=== PATIENT | female | born 1965 | race Caucasian/White ===

== ENCOUNTER 2017-11-11 10:15 | Emergency (ER) | payer BC ==
--- NOTE | 2017-11-11 11:03 | EDM.PDOC ---
ED HPI GENERAL MEDICAL PROBLEM - General Chief Complaint: Respiratory Problem Stated Complaint: CHEST COLD AND IN HEAD Time Seen by Provider: 11/11/17 11:00 Source of Information: Reports: Patient History Limitations: Reports: No Limitations - History of Present Illness INITIAL COMMENTS - FREE TEXT/NARRATIVE: Pt hs felt like her chest has been very tight. She developed wheezing problem after her chemo. . She had tachy last nite up to 140. She wondered about a flutter or fib. She did not have chest pain. Onset: Gradual Duration: Day(s):, Other ( She has been tight for several days. ) Location: Reports: Chest Associated Symptoms: Reports: Cough, Shortness of Breath - Related Data Allergies Allergy/AdvReac Type Severity Reaction Status Date / Time Elsvzip-Bkp-Olo Reductase Allergy Pain Verified 07/28/16 11:31 Inhibitor Home Meds: Home Meds ARIPiprazole [Abilify] 5 mg PO DAILY 07/28/16 [History] Albuterol/Ipratropium [Combivent Respimat] 1 puff PO ASDIRECTED 07/28/16 [ History] Ashwagandha Root Extract [Ashwagandha Extract] 450 mg PO DAILY 07/28/16 [History ] Benzonatate [Benzonatate] 100 mg PO TID PRN 07/28/16 [History] Cyclobenzaprine HCl [Cyclobenzaprine HCl] 10 mg PO TID PRN 07/28/16 [History] Escitalopram [Lexapro] 20 mg PO DAILY 07/28/16 [History] Hydrocodone/Acetaminophen [Hydrocodon-Acetaminophen 5-325] 1 tab PO TID PRN [History] Levothyroxine Sodium [Levothyroxine Sodium] 175 mcg PO DAILY 07/28/16 [History] Liothyronine [Cytomel] 5 mcg PO BID 07/28/16 [History] Modafinil [Provigil] 200 mg PO BID 07/28/16 [History] Naproxen [Naproxen] 500 mg PO BID PRN 07/28/16 [History] [place]-3 Fatty Acids/Fish Oil [Fish Oil 1,200 mg Softgel] 2 cap PO BID 07/28/16 [ History] Prasterone (DHEA) [Dhea 25] 25 mg PO DAILY 07/28/16 [History] Vit D3/Folic Acid/B2/B6/B12 [Folgard Tablet] 1 tab PO DAILY 07/28/16 [History] buPROPion [buPROPion XL] 300 mg PO DAILY 07/28/16 [History] Budesonide/Formoterol Fumarate [Symbicort 160-4.5 Mcg Inhaler] 2 puff INH BID [History] Past Medical History HEENT History: Reports: Impaired Vision Respiratory History: Reports: COPD [employer] History: Reports: Psychiatric History: Reports: Anxiety, Depression Endocrine/Metabolic History: Reports: Hypothyroidism Oncologic (Cancer) History: Reports: Ovarian Dermatologic History: Reports: Other (See Below) Other Dermatologic History: lichen planus - Infectious Disease History Infectious Disease History: Reports: Chicken Pox - Past Surgical History GI Surgical History: Reports: Cholecystectomy Female Surgical History: Reports: Tubal Ligation Other Endocrine Surgeries/Procedures: graves disease Musculoskeletal Surgical History: Reports: Other (See Below) Other Musculoskeletal Surgeries/Procedures:: back surgery x 2 Social & Family History - Tobacco Use Smoking Status *Q: Never Smoker Years of Tobacco use: 35 Packs/Tins Daily: 1 - Caffeine Use Caffeine Use: Reports: Coffee, Soda, Tea - Recreational Drug Use Recreational Drug Use: No ED ROS GENERAL - Review of Systems Review Of Systems: See Below Constitutional: Reports: Fatigue HEENT: Reports: Other (irritated throat) Respiratory: Reports: Shortness of Breath, Wheezing Cardiovascular: Reports: No Symptoms Endocrine: Reports: No Symptoms GI/Abdominal: Reports: No Symptoms : Reports: No Symptoms Musculoskeletal: Reports: No Symptoms Skin: Reports: No Symptoms ED EXAM, GENERAL - Physical Exam Exam: See Below Free Text/Narrative:: pt arrived with tightness with her breathing. She has been dealing with cough and tightness for about 10 dys. Exam Limited By: No Limitations General Appearance: Alert, Anxious, Other (no chest pain just the feeling that she is having problems moving air. ) Ears: Normal TMs Nose: Normal Inspection Throat/Mouth: Normal Inspection Head: Atraumatic Neck: Normal Inspection Respiratory/Chest: No Respiratory Distress Cardiovascular: Regular Rate, Rhythm GI/Abdominal: Soft, Non-Tender (Female) Exam: Deferred Rectal (Female) Exam: Deferred Extremities: Normal Inspection Neurological: Alert, Oriented, Normal Cognition Psychiatric: Normal Affect Course - Vital Signs Last Recorded V/S: Last Vital Signs Temp 35.7 C 11/11/17 10:29 Pulse 100 11/11/17 11:17 Resp 20 11/11/17 10:29 BP 113/75 11/11/17 11:15 Pulse Ox 96 11/11/17 10:29 - Orders/Labs/Meds Orders: Active Orders 24 hr Category Date Time Status Cardiac Monitoring [RC] .As Directed Care 11/11/17 10:59 Active RT Aerosol Therapy [RC] ASDIRECTED Care 11/11/17 11:05 Active Chest 2V [CR] Stat Exams 11/11/17 10:59 Taken TSH ULTRASENSITIVE [CHEM] Stat Lab 11/11/17 11:36 Ordered UA W/MICROSCOPIC [URIN] Urgent Lab 11/11/17 10:51 Uncollected Labs: Laboratory Tests 11/11/17 11/11/17 11/11/17 Range/Units 11:00 11:00 11:00 WBC 10.0 (4.5-11.0) K/uL RBC 4.97 (3.30-5.50) M/uL Hgb 16.3 H (12.0-15.0) g/dL Hct 46.0 (36.0-48.0) % MCV 93 (80-98) fL MCH 33 H (27-31) pg MCHC 35 (32-36) % Plt Count 209 (150-400) K/uL Neut % (Auto) 71 H (36-66) % Lymph % (Auto) 20 L (24-44) % [place] % (Auto) 8 H (2-6) % Eos % (Auto) 1 L (2-4) % Baso % (Auto) 0 (0-1) % Sodium 144 (140-148) mmol/L Potassium 4.1 (3.6-5.2) mmol/L Chloride 108 (100-108) mmol/L Carbon Dioxide 28 (21-32) mmol/L Anion Gap 8.4 (5.0-14.0) mmol/L BUN 9 (7-18) mg/dL Creatinine 0.7 (0.6-1.0) mg/dL Est Cr Clr Drug Dosing 78.65 mL/min Estimated GFR (MDRD) > 60 (>60) Glucose 104 (74-106) mg/dL Lactic Acid (0.4-2.0) mmol/L Calcium 9.0 (8.5-10.1) mg/dL Total Bilirubin 0.4 (0.2-1.0) mg/dL AST 19 (15-37) U/L ALT 46 (12-78) U/L Alkaline Phosphatase 119 H (46-116) U/L C-Reactive Protein 0.67 H (0.0-0.3) mg/dL Total Protein 6.1 L (6.4-8.2) g/dL Albumin 3.4 (3.4-5.0) g/dL Globulin 2.7 (2.3-3.5) g/dL Albumin/Globulin Ratio 1.3 (1.2-2.2) 11/11/17 Range/Units 11:00 WBC (4.5-11.0) K/uL RBC (3.30-5.50) M/uL Hgb (12.0-15.0) g/dL Hct (36.0-48.0) % MCV (80-98) fL MCH (27-31) pg MCHC (32-36) % Plt Count (150-400) K/uL Neut % (Auto) (36-66) % Lymph % (Auto) (24-44) % [place] % (Auto) (2-6) % Eos % (Auto) (2-4) % Baso % (Auto) (0-1) % Sodium (140-148) mmol/L Potassium (3.6-5.2) mmol/L Chloride (100-108) mmol/L Carbon Dioxide (21-32) mmol/L Anion Gap (5.0-14.0) mmol/L BUN (7-18) mg/dL Creatinine (0.6-1.0) mg/dL Est Cr Clr Drug Dosing mL/min Estimated GFR (MDRD) (>60) Glucose (74-106) mg/dL Lactic Acid 1.1 (0.4-2.0) mmol/L Calcium (8.5-10.1) mg/dL Total Bilirubin (0.2-1.0) mg/dL AST (15-37) U/L ALT (12-78) U/L Alkaline Phosphatase (46-116) U/L C-Reactive Protein (0.0-0.3) mg/dL Total Protein (6.4-8.2) g/dL Albumin (3.4-5.0) g/dL Globulin (2.3-3.5) g/dL Albumin/Globulin Ratio (1.2-2.2) Meds: Medications Discontinued Medications Generic Name Dose Route Start Last Admin Trade Name Freq PRN Reason Stop Dose Admin Albuterol 2.5 mg 11/11/17 11:05 11/11/17 11:15 Proventil Neb Soln NEB 11/11/17 11:06 2.5 mg ONETIME ONE Administration Triamcinolone Acetonide 60 mg 11/11/17 11:45 Kenalog-40 INJECT 11/11/17 11:46 ASDIRECTED ONE - Re-Assessments/Exams Free Text/Narrative Re-Assessment/Exam: 11/11/17 11:57 chest xray show increased bronchiol markings but no definite infiltrate. Lab work looks good. Departure - Departure Time of Disposition: 11:46 Disposition: Home, Self-Care 01 Condition: Fair Clinical Impression: Bronchitis, Bronchospasm - Discharge Information Referrals: Curtis Bird MD [Primary Care Provider] - Forms: ED Department Discharge Care Plan Goals: cool mist humidifier, , push fluids, cont other meds, Use the combivent inhaler 2 puffs tid regulrly for the next week, zithromax 500mg no and the 250 daily for 7 days. - My Orders Last 24 Hours: My Active Orders 11/11/17 10:51 UA W/MICROSCOPIC [URIN] Urgent 11/11/17 10:59 Cardiac Monitoring [RC] .As Directed Chest 2V [CR] Stat 11/11/17 11:05 RT Aerosol Therapy [RC] ASDIRECTED 11/11/17 11:36 TSH ULTRASENSITIVE [CHEM] Stat - Assessment/Plan Last 24 Hours: My Active Orders 11/11/17 10:51 UA W/MICROSCOPIC [URIN] Urgent 11/11/17 10:59 Cardiac Monitoring [RC] .As Directed Chest 2V [CR] Stat 11/11/17 11:05 RT Aerosol Therapy [RC] ASDIRECTED 11/11/17 11:36 TSH ULTRASENSITIVE [CHEM] Stat
[2017-11-11] MEDS ORDERED: Albuterol 0.083% 2.5 MG/3 ML Neb Soln NEB ONE (11:05)
[2017-11-11 11:31] VITALS: BP 113/75
[2017-11-11] MEDS ORDERED: Triamcinolone Acetonide 40 MG/ML 1 ML MDV INJECT ONE (11:45)
--- NOTE | 2017-11-12 09:19 | CR ---
Chest 2V HISTORY: sob COMPARISON: 02/11/2012 FINDINGS: Lungs appear clear and normally aerated. Cardiomediastinal silhouette is within normal limits. No vas cular redistribution or pleural fluid can be seen. Bony structures and soft tissues are unremarkable. IMPRESSION: No acute chest abnormality or significant interval change is identified.
== END 2017-11-11 12:06 | disposition home or self-care (01) ==
LOC: JP.ED 10:15
DX: J40 Bronchitis, not specified as acute or chronic (principal); J44.9 Chronic obstructive pulmonary disease, unspecified; E03.9 Hypothyroidism, unspecified; C56.9 Malignant neoplasm of unspecified ovary; Z88.8 Allergy status to other drugs, medicaments and biological substances; Z79.899 Other long term (current) drug therapy; Z79.51 Long term (current) use of inhaled steroids; Z72.0 Tobacco use
CPT/HCPCS: 36415; 71046; 80053; 83605; 84443; 85025; 86140; 94640; 96372; 99284; J3301

== ENCOUNTER 2019-02-05 12:23 | Outpatient (CLI) | payer BC ==
[~2019-02-05 12:23] MED LIST: Bupivacaine 0.25% 10 ML SDV ONE; methylPREDNISolone Acetate 40 MG/ML SDV ONE
[2019-02-05 13:13] VITALS: BP 119/79; PULSE 102
--- NOTE | 2019-02-05 14:12 | ANES ---
DATE OF SERVICE: 02/05/2019 INDICATION: Lucas is a 53-year-old female patient referred to us by Dr. Mock. She had a series of 3 in October through November where she did get pretty good amount of relief, is having some more significant back pain and wanting another epidural steroid injection today. Risks and benefits were again reviewed with the patient, patient verbalized her understanding and wishes to proceed with epidural steroid injection. Please refer to doctor's note for ICD-10 code and diagnosis. Previous epidural done by Dameon Zapata and it was noted that he went a centimeter above the bottom of the scar, so that was where I was looking to place this epidural today. TECHNIQUE: The patient was sat at the edge of the bed. Betadine prep x3 to the lumbar region was done, sterile drape was placed. 1% lidocaine skin wheal and deep was done. A 17- gauge Tuohy needle was inserted at approximately the L5-S1 or approximately 1 cm above the bottom of her scar. As I was inserting the Tuohy needle, the patient was having pressure. When I got good loss of resistance, the patient moved and I got fair amount of bloody-tinged fluid back questioning a dural puncture, so I pulled Tuohy needle slightly back. Fluid had stopped, went back in a little bit where I received loss of resistance again. At that time, I had no CSF, no heme, or no paresthesia. I then proceeded to give the patient 7 mL of sterile normal saline with 1 mL of 40 mg Depo-Medrol. I did not give her any local anesthetic at this time for concern of potential dural puncture. Tuohy needle was then flushed and withdrawn. Sterile drape was taken down. Betadine was cleaned off her back, and a Band-Aid was applied to the puncture site for hemostasis. The patient did feel a little bit of pressure feeling in her head, but after laying her down for several minutes, she did state that it was getting a little better. I encouraged the patient to drink a lot of caffeine and fluids, and if it does not get any better, I encouraged her to call us in a couple of days so we can do an epidural blood patch. The patient understands the potential for dural headache and will call us as needed. Please refer to the nurses notes for vital signs. After the appropriate amount of time, the patient will be discharged per [facility] protocol. Michael Osorio CRNA /[id number]
== END 2019-02-05 13:31 | disposition home or self-care (01) ==
LOC: JP.PAIN 12:23
PROVIDERS: ATTEND Family Medicine
DX: M54.17 Radiculopathy, lumbosacral region (principal); M54.31 Sciatica, right side
CPT/HCPCS: 62322; J1030; J3490

== ENCOUNTER 2021-12-23 04:50 | Emergency (ER) | payer BC, MEDICARE, OTHER ==
[2021-12-23] MEDS ORDERED: Sodium Chloride 0.9% 10 ML Syringe FLUSH PRN (06:11)
[2021-12-23] MEDS ORDERED: Iopamidol 612 MG/ML 100 ML Bottle IV STA (06:26)
[2021-12-23] MEDS ORDERED: Meropenem 1 GM in Sodium Chloride 0.9% 100 ML IV ONE (08:55)
[2021-12-23 10:51] VITALS: BP 124/73; PULSE 97
== END 2021-12-23 11:35 | disposition home or self-care (01) ==
LOC: JP.ED 04:50
DX: T81.32XA Disruption of internal operation (surgical) wound, not elsewhere classified, initial encounter (principal); J44.9 Chronic obstructive pulmonary disease, unspecified; E03.9 Hypothyroidism, unspecified; Z20.822 Contact with and (suspected) exposure to COVID-19; Z88.8 Allergy status to other drugs, medicaments and biological substances; Z79.899 Other long term (current) drug therapy
CPT/HCPCS: 36415; 71260; 74177; 80053; 81001; 85025; 86140; 96365; 99283; 99284-25; J2185; J3490; Q9967; U0002

== ENCOUNTER 2022-02-12 22:20 | Emergency (ER) | payer MEDICARE ==
[2022-02-12] MEDS ORDERED: HYDROmorphone 1 MG/ML Syringe IVPUSH ONE (23:09)
[2022-02-12] MEDS ORDERED: Sodium Chloride 0.9% 10 ML Syringe FLUSH PRN (23:09)
[2022-02-12] MEDS ORDERED: Sodium Chloride 0.9% 10 ML Syringe FLUSH ONE (23:22)
[2022-02-12 23:27] VITALS: BP 125/69; PULSE 101
[2022-02-12] MEDS ORDERED: Sodium Chloride 0.9% 50 ML IV SCH (23:30)
[2022-02-12] MEDS ORDERED: Iopamidol 612 MG/ML 100 ML Bottle IV SCH (23:30)
== END 2022-02-13 01:17 | disposition home or self-care (01) ==
LOC: JP.ED 22:20
DX: R10.32 Left lower quadrant pain (principal); J44.9 Chronic obstructive pulmonary disease, unspecified; K21.9 Gastro-esophageal reflux disease without esophagitis; Z88.8 Allergy status to other drugs, medicaments and biological substances; Z79.84 Long term (current) use of oral hypoglycemic drugs; Z79.899 Other long term (current) drug therapy; Z20.822 Contact with and (suspected) exposure to COVID-19; Z93.3 Colostomy status
CPT/HCPCS: 36415; 74177; 80053; 83605; 85025; 96374; 99283; 99284-25; J1170; J3490; Q9967; U0002

== ENCOUNTER 2022-02-17 05:28 | Emergency (ER) | payer MEDICARE ==
[2022-02-17 06:01] LABS: TROPONIN I HIGH SENSITIVITY 6.1 pg/mL (<=60.3)
[2022-02-17 07:42] VITALS: BP 103/65; PULSE 89
== END 2022-02-17 08:33 | disposition home or self-care (01) ==
LOC: JP.ED 05:28
DX: R07.89 Other chest pain (principal); E11.9 Type 2 diabetes mellitus without complications; J44.9 Chronic obstructive pulmonary disease, unspecified; I10 Essential (primary) hypertension; E11.40 Type 2 diabetes mellitus with diabetic neuropathy, unspecified; E03.9 Hypothyroidism, unspecified; Z90.49 Acquired absence of other specified parts of digestive tract; Z79.899 Other long term (current) drug therapy; Z79.84 Long term (current) use of oral hypoglycemic drugs; Z88.8 Allergy status to other drugs, medicaments and biological substances
CPT/HCPCS: 36415; 71045; 71045-26; 80053; 84484; 85025; 85610; 85730; 93005; 93010; 99283; 99285-25

== ENCOUNTER 2022-03-05 10:27 | Emergency (ER) | payer MEDICARE ==
[2022-03-05 11:01] VITALS: BP 147/73; PULSE 113
== END 2022-03-05 14:28 | disposition home or self-care (01) ==
LOC: JP.ED 10:27
DX: L02.211 Cutaneous abscess of abdominal wall (principal); J44.9 Chronic obstructive pulmonary disease, unspecified; E11.42 Type 2 diabetes mellitus with diabetic polyneuropathy; E03.9 Hypothyroidism, unspecified; K21.9 Gastro-esophageal reflux disease without esophagitis; Z88.8 Allergy status to other drugs, medicaments and biological substances; Z79.84 Long term (current) use of oral hypoglycemic drugs; Z79.899 Other long term (current) drug therapy; Z87.891 Personal history of nicotine dependence
CPT/HCPCS: 74176; 87070; 87077; 87186; 87205; 99282; 99284-25

== ENCOUNTER 2022-03-10 04:58 | Emergency (ER) | payer MEDICARE ==
[2022-03-10] MEDS ORDERED: Ondansetron 4 MG/2 ML SDV IVPUSH ONE (05:02)
[2022-03-10] MEDS ORDERED: Sodium Chloride 0.9% 10 ML Syringe FLUSH PRN (05:02)
[2022-03-10] MEDS ORDERED: HYDROmorphone 1 MG/ML Syringe IVPUSH ONE (05:02)
[2022-03-10] MEDS ORDERED: Sodium Chloride 0.9% 50 ML IV STA (05:22)
[2022-03-10] MEDS ORDERED: Iopamidol 612 MG/ML 100 ML Bottle IV STA (05:22)
[2022-03-10 05:31] LABS: ESTIMATED GFR > 60 (>60)
[2022-03-10 07:16] VITALS: BP 125/80; PULSE 95
== END 2022-03-10 10:05 ==
LOC: JP.ED 04:58
DX: K56.600 Partial intestinal obstruction, unspecified as to cause (principal); K43.6 Other and unspecified ventral hernia with obstruction, without gangrene; K94.09 Other complications of colostomy; E11.9 Type 2 diabetes mellitus without complications; J44.9 Chronic obstructive pulmonary disease, unspecified; K21.9 Gastro-esophageal reflux disease without esophagitis; E03.9 Hypothyroidism, unspecified; Z88.8 Allergy status to other drugs, medicaments and biological substances; Z79.899 Other long term (current) drug therapy; Z20.822 Contact with and (suspected) exposure to COVID-19; Z85.43 Personal history of malignant neoplasm of ovary
CPT/HCPCS: 36415; 74018; 74177; 80053; 83605; 83690; 85025; 86140; 96374; 96375; 99285; J1170; J2405; J3490; Q9967; U0002

== ENCOUNTER 2022-03-22 14:10 | Emergency (ER) | payer MEDICARE ==
[2022-03-22 14:39] VITALS: BP 135/82; PULSE 105
[2022-03-22] MEDS ORDERED: Magnesium Sulfate/Water 2 GM in Premix Bag 1 BAG IV ONE (15:24)
[2022-03-22] MEDS ORDERED: Magnesium Oxide 400 MG Tab PO ONE (15:33)
[2022-03-22] MEDS ORDERED: Ciprofloxacin 500 MG Tab PO ONE (17:34)
[2022-03-22] MEDS ORDERED: Magnesium Sulfate/Water 2 GM in Premix Bag 1 BAG IV SCH (18:00)
[2022-03-22] MEDS ORDERED: Ondansetron 4 MG/2 ML SDV IVPUSH ONE (20:09)
[2022-03-22] MEDS ORDERED: Ondansetron 4 MG/2 ML SDV ONE (20:10)
== END 2022-03-22 20:33 | disposition home or self-care (01) ==
LOC: JP.ED 14:10
DX: D70.1 Agranulocytosis secondary to cancer chemotherapy (principal); T45.1X5A Adverse effect of antineoplastic and immunosuppressive drugs, initial encounter; K94.03 Colostomy malfunction; J44.9 Chronic obstructive pulmonary disease, unspecified; E11.9 Type 2 diabetes mellitus without complications; E83.42 Hypomagnesemia; E03.9 Hypothyroidism, unspecified; Z85.43 Personal history of malignant neoplasm of ovary; Z79.899 Other long term (current) drug therapy
CPT/HCPCS: 36415; 81001; 83735; 96365; 96366; 99283; A9270; J2405; J3475

== ENCOUNTER 2022-04-02 18:01 | Emergency (ER) | payer MEDICARE ==
[2022-04-02 18:45] VITALS: BP 144/70; PULSE 114
[2022-04-02] MEDS ORDERED: Magnesium Sulfate/Water 2 GM in Premix Bag 1 BAG IV ONE (21:58)
[2022-04-02] MEDS ORDERED: Magnesium Oxide 400 MG Tab PO ONE (21:59)
[2022-04-02] MEDS: Magnesium Sulfate/Water 2 GM in Premix Bag 1 BAG IV SCH (22:28)
[2022-04-03] MEDS ORDERED: Acetaminophen/oxyCODONE 325-5 MG Tab PO ONE (02:27)
[2022-04-03] MEDS: Magnesium Sulfate/Water 2 GM in Premix Bag 1 BAG IV SCH (02:59)
== END 2022-04-03 06:01 | disposition home or self-care (01) ==
LOC: JP.ED 18:01
DX: I80.8 Phlebitis and thrombophlebitis of other sites (principal); J44.9 Chronic obstructive pulmonary disease, unspecified; E11.40 Type 2 diabetes mellitus with diabetic neuropathy, unspecified; I10 Essential (primary) hypertension; E83.42 Hypomagnesemia; F17.210 Nicotine dependence, cigarettes, uncomplicated; Z88.6 Allergy status to analgesic agent; Z88.8 Allergy status to other drugs, medicaments and biological substances; Z79.899 Other long term (current) drug therapy; Z79.84 Long term (current) use of oral hypoglycemic drugs; Z90.49 Acquired absence of other specified parts of digestive tract; Z90.710 Acquired absence of both cervix and uterus
CPT/HCPCS: 36415; 83735; 93971; 96365; 96366; 99284; A9270; J3475

== ENCOUNTER 2022-04-21 17:22 | Observation (INO) | payer MEDICARE ==
[2022-04-21] MEDS ORDERED: Magnesium Hydroxide 400 MG/5 ML Susp 30 ML Cup PO PRN (18:25)
[2022-04-21] MEDS ORDERED: Acetaminophen 325 MG Tab PO PRN (18:25)
[2022-04-21] MEDS ORDERED: Ondansetron 4 MG/2 ML SDV IV PRN (18:25)
[2022-04-21] MEDS ORDERED: LORazepam 2 MG/ML SDV IVPUSH PRN (18:25)
[2022-04-21] MEDS ORDERED: Cyclobenzaprine 10 MG Tab PO PRN (18:33)
[2022-04-21] MEDS ORDERED: Cetirizine 10 MG Tab PO PRN (18:33)
[2022-04-21] MEDS ORDERED: Insulin Lispro 100 Unit/ML 3 ML KwikPen SUBCUT SCH (19:00)
[2022-04-21] MEDS: cefTRIAXone 1 GM in Sodium Chloride 0.9% 50 ML IV SCH (19:56)
[2022-04-21] MEDS: Nicotine 14 MG/24 Hr Patch TRDERM SCH (19:57)
[2022-04-21] MEDS ORDERED: Formoterol/Mometasone 200-5 MCG 8.8 GM Inhaler IH SCH (21:00)
[2022-04-21] MEDS: Azithromycin 500 MG in Sodium Chloride 0.9% 250 ML IV SCH (21:06)
[2022-04-21] MEDS: LORazepam 2 MG/ML SDV IVPUSH SCH (22:10)
[2022-04-21] MEDS: Insulin Lispro 100 Unit/ML 3 ML KwikPen SUBCUT SCH (22:11)
[2022-04-21] MEDS: Pantoprazole 40 MG Tab.CR PO SCH (22:11)
[2022-04-21] MEDS: Pregabalin 100 MG Cap PO SCH (22:11)
[2022-04-21] MEDS: Codeine/guaiFENesin 10-100 MG/5 ML Syrup 5 ML Cup PO PRN (22:13)
[2022-04-21] MEDS: Ondansetron 4 MG Tab.DIS PO PRN (22:20)
[2022-04-22] MEDS: oxyCODONE 5 MG Tab PO PRN ×4 (00:51→20:25)
[2022-04-22] MEDS: LORazepam 2 MG/ML SDV IVPUSH SCH (04:58)
[2022-04-22] MEDS: Albuterol/Ipratropium 3.0-0.5 MG/3 ML Neb Soln NEB PRN ×2 (05:07→19:35)
[2022-04-22 05:14] LABS: HEMOGLOBIN A1C 7.6 % (4.5-6.2)
[2022-04-22 05:23] LABS: ESTIMATED GFR 106 mL/min (>60)
[2022-04-22] MEDS: Insulin Lispro 100 Unit/ML 3 ML KwikPen SUBCUT SCH ×4 (07:49→21:35)
[2022-04-22] MEDS: Levothyroxine 25 MCG Tab PO SCH (08:35)
[2022-04-22] MEDS: Levothyroxine 112 MCG Tab PO SCH (08:35)
[2022-04-22] MEDS: Pantoprazole 40 MG Tab.CR PO SCH ×2 (08:35→16:10)
[2022-04-22] MEDS: metFORMIN 500 MG Tab PO SCH ×2 (08:35→16:09)
[2022-04-22] MEDS: ARIPiprazole 10 MG Tab PO SCH (08:36)
[2022-04-22] MEDS: Escitalopram 10 MG Tab PO SCH (08:36)
[2022-04-22] MEDS: Nicotine 14 MG/24 Hr Patch TRDERM SCH (08:36)
[2022-04-22] MEDS: Fluconazole 100 MG Tab PO SCH (08:36)
[2022-04-22] MEDS: predniSONE 5 MG Tab PO SCH (08:37)
[2022-04-22] MEDS: buPROPion 150 MG Tab.ER PO SCH (08:37)
[2022-04-22] MEDS: Magnesium Oxide 400 MG Tab PO SCH (08:37)
[2022-04-22] MEDS: Pregabalin 100 MG Cap PO SCH ×2 (08:43→20:17)
[2022-04-22] MEDS ORDERED: LORazepam 0.5 MG Tab PO SCH (09:00)
[2022-04-22] MEDS ORDERED: Escitalopram 20 MG Tab PO SCH (09:00)
[2022-04-22] MEDS ORDERED: ARMODAFINIL 200 MG PO SCH (09:00)
[2022-04-22] MEDS: Formoterol/Mometasone 200-5 MCG 8.8 GM Inhaler IH SCH ×2 (10:13→20:17)
[2022-04-22] MEDS ORDERED: methylPREDNISolone Sodium Succinate 125 MG/2 ML SDV IVPUSH ONE (11:45)
[2022-04-22] MEDS: LORazepam 0.5 MG Tab PO SCH ×2 (13:16→20:16)
[2022-04-22] MEDS: cefTRIAXone 1 GM in Sodium Chloride 0.9% 50 ML IV SCH (19:22)
[2022-04-22] MEDS: Azithromycin 500 MG in Sodium Chloride 0.9% 250 ML IV SCH (20:17)
[2022-04-22] MEDS: Ondansetron 4 MG Tab.DIS PO PRN (21:36)
[2022-04-22] MEDS ORDERED: LORazepam 2 MG/ML SDV IVPUSH PRN (22:00)
[2022-04-23 05:30] LABS: ESTIMATED GFR 106 mL/min (>60)
[2022-04-23] MEDS: Insulin Lispro 100 Unit/ML 3 ML KwikPen SUBCUT SCH ×2 (07:37→12:08)
[2022-04-23] MEDS: Levothyroxine 112 MCG Tab PO SCH (07:42)
[2022-04-23] MEDS: metFORMIN 500 MG Tab PO SCH (07:42)
[2022-04-23] MEDS: Levothyroxine 25 MCG Tab PO SCH (07:42)
[2022-04-23] MEDS: Pantoprazole 40 MG Tab.CR PO SCH (07:42)
[2022-04-23] MEDS: Formoterol/Mometasone 200-5 MCG 8.8 GM Inhaler IH SCH (07:42)
[2022-04-23] MEDS: oxyCODONE 5 MG Tab PO PRN (07:44)
[2022-04-23] MEDS: ARIPiprazole 10 MG Tab PO SCH (08:17)
[2022-04-23] MEDS: LORazepam 0.5 MG Tab PO SCH (08:17)
[2022-04-23] MEDS: Fluconazole 100 MG Tab PO SCH (08:17)
[2022-04-23] MEDS: Pregabalin 100 MG Cap PO SCH (08:18)
[2022-04-23] MEDS: predniSONE 5 MG Tab PO SCH (08:18)
[2022-04-23] MEDS: Escitalopram 10 MG Tab PO SCH (08:18)
[2022-04-23] MEDS: Nicotine 14 MG/24 Hr Patch TRDERM SCH (08:18)
[2022-04-23] MEDS: buPROPion 150 MG Tab.ER PO SCH (08:18)
[2022-04-23] MEDS: Codeine/guaiFENesin 10-100 MG/5 ML Syrup 5 ML Cup PO PRN (08:18)
[2022-04-23] MEDS: Magnesium Oxide 400 MG Tab PO SCH (08:18)
[2022-04-23] MEDS ORDERED: Magnesium Sulfate/Water 2 GM in Premix Bag 1 BAG IV ONE ×2 (08:30→10:30)
[2022-04-23 11:25] VITALS: BP 129/68; PULSE 93
[2022-04-23] MEDS ORDERED: Cefdinir 300 MG Cap PO ONE (11:35)
[2022-04-23] MEDS ORDERED: Cefdinir 300 MG Cap PO SCH (21:00)
== END 2022-04-23 13:30 | disposition home or self-care (01) ==
LOC: JP.MS 17:22
PROVIDERS: ADMIT Hospitalist; ATTEND Hospitalist
DX: J96.21 Acute and chronic respiratory failure with hypoxia (principal); I10 Essential (primary) hypertension; E11.42 Type 2 diabetes mellitus with diabetic polyneuropathy; E03.9 Hypothyroidism, unspecified; D64.9 Anemia, unspecified; J44.9 Chronic obstructive pulmonary disease, unspecified; F32.A Depression, unspecified; F17.210 Nicotine dependence, cigarettes, uncomplicated; Z79.84 Long term (current) use of oral hypoglycemic drugs; Z79.51 Long term (current) use of inhaled steroids; Z79.899 Other long term (current) drug therapy; Z79.890 Hormone replacement therapy; Z79.52 Long term (current) use of systemic steroids; Z98.890 Other specified postprocedural states; Z88.8 Allergy status to other drugs, medicaments and biological substances
CPT/HCPCS: 36415; 36430; 71046; 80053; 82947; 83036; 83735; 85025; 85027; 86140; 86850; 86900; 86901; 86920; 86922; 87070; 87077; 87205; 94640; 96365; 96366; 96367; 96375; 96376; A9270; G0378; G0379; J0456; J0696; J1642; J1815; J2060; J2930; J3475; J7050; J7512; P9016; Q0162; 99217; 99219; 99225; J7620

== ENCOUNTER 2022-10-17 12:26 | Emergency (ER) | payer BC, MEDICARE ==
[2022-10-17 12:36] VITALS: BP 114/83; PULSE 116
[2022-10-17] MEDS ORDERED: Magnesium Sulfate/Water 2 GM in Premix Bag 1 BAG IV ONE (13:17)
[2022-10-17 13:54] LABS: ESTIMATED GFR 75 mL/min (>60)
[2022-10-17 14:57] LABS: CORONAVIRUS COVID-19 NAA NEGATIVE (NEGATIVE)
== END 2022-10-17 16:19 | disposition home or self-care (01) ==
LOC: JP.ED 12:26
DX: J06.9 Acute upper respiratory infection, unspecified (principal); E83.42 Hypomagnesemia; C56.9 Malignant neoplasm of unspecified ovary; J44.9 Chronic obstructive pulmonary disease, unspecified; I10 Essential (primary) hypertension; E03.9 Hypothyroidism, unspecified; E11.9 Type 2 diabetes mellitus without complications; Z88.6 Allergy status to analgesic agent; Z88.8 Allergy status to other drugs, medicaments and biological substances; Z79.899 Other long term (current) drug therapy; Z90.49 Acquired absence of other specified parts of digestive tract; Z90.710 Acquired absence of both cervix and uterus; Z20.822 Contact with and (suspected) exposure to COVID-19
CPT/HCPCS: 0241U; 36415; 71250; 80053; 83880; 96365; 96366; 99285; J1642; J3475; 99283

== ENCOUNTER 2023-01-14 19:46 | Emergency (ER) | payer MEDICARE, MEDICAID ==
[2023-01-14 20:00] VITALS: PULSE 119
[2023-01-14 20:36] VITALS: BP 136/73
[2023-01-14 21:02] LABS: ESTIMATED GFR 53 mL/min (>60)
[2023-01-14 21:16] LABS: CORONAVIRUS COVID-19 NAA NEGATIVE (NEGATIVE)
[2023-01-14] MEDS ORDERED: methylPREDNISolone Sodium Succinate 125 MG/2 ML SDV IVPUSH ONE (21:37)
[2023-01-14] MEDS ORDERED: LORazepam 1 MG Tab PO ONE (21:39)
== END 2023-01-14 22:25 | disposition home or self-care (01) ==
LOC: JP.ED 19:46
DX: J44.1 Chronic obstructive pulmonary disease with (acute) exacerbation (principal); I10 Essential (primary) hypertension; E11.42 Type 2 diabetes mellitus with diabetic polyneuropathy; E03.9 Hypothyroidism, unspecified; Z88.8 Allergy status to other drugs, medicaments and biological substances; Z79.84 Long term (current) use of oral hypoglycemic drugs; Z72.0 Tobacco use; Z20.822 Contact with and (suspected) exposure to COVID-19
CPT/HCPCS: 0241U; 36415; 71046; 80053; 85025; 85379; 86140; 96374; 99283; 99285; A9270; J1642; J2930

== ENCOUNTER 2023-06-28 14:59 | Emergency (ER) | payer MEDICARE, MEDICAID ==
[2023-06-28 16:11] LABS: BASOPHILS PERCENT AUTO 0.3 % (0.1-1.3); EOSINOPHILS PERCENT AUTO 0.1 % (0.0-5.4); HEMATOCRIT 37.8 % (34.3-46.0); IMMATURE GRAN ABSOLUTE AUTO 0.03 K/uL (0.00-0.23); IMMATURE GRAN PERCENT AUTO 0.4 % (0.0-0.7); LYMPHOCYTES ABSOLUTE AUTO 0.81 K/uL (0.8-3.3); LYMPHOCYTES PERCENT AUTO 10.8 % (11.4-47.7); MEAN CORPUSCULAR HEMOGLOBIN 36.5 pg (31.6-35.5); MEAN CORPUSCULAR HGB CONC 34.4 g/dL (31.6-35.5); MEAN CORPUSCULAR VOLUME 106.2 fL (81.4-99.0); MONOCYTES ABSOLUTE AUTO 0.47 K/uL (0.20-0.90); MONOCYTES PERCENT AUTO 6.3 % (3.3-12.6); NEUTROPHILS ABSOLUTE AUTO 6.13 K/uL (1.0-7.6); NEUTROPHILS PERCENT AUTO 82.1 % (40.0-78.1); PLATELET COUNT,PLT 145 K/uL (130-375); RED BLOOD CELL COUNT 3.56 M/uL (3.77-5.24); WHITE BLOOD CELL COUNT,WBC 7.5 K/uL (3.2-11.0)
[2023-06-28 16:12] LABS: BASOPHILS ABSOLUTE AUTO 0.02 K/uL (0.00-0.10); EOSINOPHILS ABSOLUTE AUTO 0.01 K/uL (0.00-0.40)
[2023-06-28 16:13] LABS: CARBOXYHEMOGLOBIN 9.9 % (0.0-1.6); METHEMOGLOBIN 0.8 %; O2 SATURATION VENOUS 81.8; PCO2 VENOUS 43.1 mm/Hg; PO2 VENOUS 46.4 mm/Hg; TOTAL HEMOGLOBIN 13.3 g/dL (12.0-16.0)
[2023-06-28 16:14] LABS: BASE EXCESS VENOUS 1.9 mm/L; BICARBONATE,VENOUS 26.4 mmol/L; PH,VENOUS 7.404 (7.350-7.450)
[2023-06-28 16:26] LABS: APPEARANCE,URINE CLEAR (CLEAR); BILIRUBIN,URINE NEGATIVE (NEGATIVE); COLOR,URINE YELLOW (YELLOW); GLUCOSE,URINE 100 mg/dL (NEGATIVE); KETONES,URINE NEGATIVE (NEGATIVE); LEUKOCYTE ESTERASE,URINE TRACE (NEGATIVE); NITRITE,URINE NEGATIVE (NEGATIVE); OCCULT BLOOD,URINE NEGATIVE (NEGATIVE); PROTEIN,URINE NEGATIVE (NEGATIVE); UROBILINOGEN,URINE 0.2 EU/dL (0.2-1.0)
[2023-06-28 16:34] VITALS: BP 122/87; PULSE 114
[2023-06-28 16:34] LABS: INR 0.9; PROTHROMBIN TIME 9.6 sec (9.2-10.6)
[2023-06-28 16:46] LABS: AMORPHOUS SEDIMENT,URINE NOT SEEN; BACTERIA,URINE FEW; EPITHELIAL CELLS,URINE RARE; MUCUS,URINE NOT SEEN; RBC,URINE 0-5 (0-5); WBC,URINE 0-5 (0-5)
[2023-06-28 16:47] LABS: A/G RATIO 0.9 (1.2-2.2); ALANINE AMINOTRANSFERASE,ALT 30 U/L (12-78); ALBUMIN 3.2 g/dL (3.4-5.0); ALKALINE PHOSPHATASE 115 U/L (46-116); ASPARTATE AMNIOTRANSFERASE,AST 14 U/L (15-37); BILIRUBIN TOTAL 0.2 mg/dL (0.2-1.0); BLOOD UREA NITROGEN,BUN 16 mg/dL (7-18); CALCIUM 9.5 mg/dL (8.5-10.1); CARBON DIOXIDE,CO2 27 mmol/L (21-32); CHLORIDE,CL 99 mmol/L (100-108); CREATININE 0.8 mg/dL (0.6-1.0); EST CRCL DRUG DOSING (CG) 64.95 mL/min; ESTIMATED GFR 86 mL/min (>60); GLUCOSE RANDOM 245 mg/dL (74-106); POTASSIUM,K 4.2 mmol/L (3.6-5.2); PRO B-TYPE NATRIUR PEPT,BNPPRO 93 pg/mL (5-125); PROTEIN TOTAL,TP 6.6 g/dL (6.4-8.2); SODIUM,NA 135 mmol/L (140-148)
[2023-06-28 16:52] LABS: ANION GAP 13.2 mmol/L (5.0-14.0)
[2023-06-28] MEDS ORDERED: Iopamidol 755 Mg/ML 100 ML Bottle IV SCH (17:30)
[2023-06-28] MEDS ORDERED: Sodium Chloride 0.9% 100 ML IV SCH (17:30)
== END 2023-06-28 19:34 | disposition home or self-care (01) ==
LOC: JP.ED 14:59
DX: M54.50 Low back pain, unspecified (principal); J47.1 Bronchiectasis with (acute) exacerbation; E11.65 Type 2 diabetes mellitus with hyperglycemia; K59.03 Drug induced constipation; T40.2X5A Adverse effect of other opioids, initial encounter; Z85.43 Personal history of malignant neoplasm of ovary; Z93.3 Colostomy status; E03.9 Hypothyroidism, unspecified; E11.40 Type 2 diabetes mellitus with diabetic neuropathy, unspecified; I10 Essential (primary) hypertension; Z79.84 Long term (current) use of oral hypoglycemic drugs; Z79.899 Other long term (current) drug therapy; Z88.8 Allergy status to other drugs, medicaments and biological substances
CPT/HCPCS: 36415; 71275; 72131; 74160; 76377; 80053; 81001; 82803; 83605; 83880; 84145; 84484; 85025; 85379; 85610; 99284

== ENCOUNTER 2023-12-24 12:54 | Emergency (ER) | payer MEDICARE, MEDICAID ==
[2023-12-24 14:24] LABS: BASOPHILS ABSOLUTE AUTO 0.04 K/uL (0.00-0.10); BASOPHILS PERCENT AUTO 0.7 % (0.1-1.3); EOSINOPHILS ABSOLUTE AUTO 0.11 K/uL (0.00-0.40); EOSINOPHILS PERCENT AUTO 1.9 % (0.0-5.4); HEMATOCRIT 41.5 % (34.3-46.0); HEMOGLOBIN 14.1 g/dL (11.2-15.5); IMMATURE GRAN ABSOLUTE AUTO 0.02 K/uL (0.00-0.23); IMMATURE GRAN PERCENT AUTO 0.4 % (0.0-0.7); LYMPHOCYTES ABSOLUTE AUTO 1.43 K/uL (0.8-3.3); LYMPHOCYTES PERCENT AUTO 25.3 % (11.4-47.7); MEAN CORPUSCULAR HEMOGLOBIN 31.9 pg (31.6-35.5); MEAN CORPUSCULAR VOLUME 93.9 fL (81.4-99.0); MONOCYTES ABSOLUTE AUTO 0.61 K/uL (0.20-0.90); MONOCYTES PERCENT AUTO 10.8 % (3.3-12.6); NEUTROPHILS ABSOLUTE AUTO 3.45 K/uL (1.0-7.6); NEUTROPHILS PERCENT AUTO 60.9 % (40.0-78.1); PLATELET COUNT,PLT 141 K/uL (130-375); RED BLOOD CELL COUNT 4.42 M/uL (3.77-5.24); WHITE BLOOD CELL COUNT,WBC 5.7 K/uL (3.2-11.0)
[2023-12-24] MEDS: Albuterol 0.083% 2.5 MG/3 ML Neb Soln NEB ONE ×2 (14:34→16:01)
[2023-12-24 14:51] LABS: A/G RATIO 0.9 (1.2-2.2); ALANINE AMINOTRANSFERASE,ALT 23 U/L (12-78); ALBUMIN 3.2 g/dL (3.4-5.0); ALKALINE PHOSPHATASE 123 U/L (46-116); ASPARTATE AMNIOTRANSFERASE,AST 17 U/L (15-37); BILIRUBIN TOTAL 0.2 mg/dL (0.2-1.0); BLOOD UREA NITROGEN,BUN 9 mg/dL (7-18); C-REACTIVE PROTEIN 2.34 mg/dL (<0.50); CALCIUM 9.5 mg/dL (8.5-10.1); CARBON DIOXIDE,CO2 29 mmol/L (21-32); CHLORIDE,CL 102 mmol/L (100-108); CREATININE 0.8 mg/dL (0.6-1.0); EST CRCL DRUG DOSING (CG) 64.18 mL/min; ESTIMATED GFR 86 mL/min (>60); GLUCOSE RANDOM 125 mg/dL (74-106); POTASSIUM,K 4.1 mmol/L (3.6-5.2); PROTEIN TOTAL,TP 6.9 g/dL (6.4-8.2); SODIUM,NA 139 mmol/L (140-148)
[2023-12-24 14:53] LABS: ANION GAP 12.1 mmol/L (5.0-14.0)
[2023-12-24 15:36] VITALS: BP 122/79; PULSE 110
== END 2023-12-24 16:25 | disposition home or self-care (01) ==
LOC: JP.ED 12:54
DX: J44.1 Chronic obstructive pulmonary disease with (acute) exacerbation (principal); J18.9 Pneumonia, unspecified organism; I10 Essential (primary) hypertension; K21.9 Gastro-esophageal reflux disease without esophagitis; E11.42 Type 2 diabetes mellitus with diabetic polyneuropathy; E03.9 Hypothyroidism, unspecified; F17.210 Nicotine dependence, cigarettes, uncomplicated; Z88.8 Allergy status to other drugs, medicaments and biological substances; Z79.899 Other long term (current) drug therapy; Z79.51 Long term (current) use of inhaled steroids; Z86.19 Personal history of other infectious and parasitic diseases; Z90.49 Acquired absence of other specified parts of digestive tract; Z90.710 Acquired absence of both cervix and uterus
CPT/HCPCS: 36415; 80053; 85025; 86140; 94640; 99285

== ENCOUNTER 2023-12-28 20:36 | Inpatient (IN) | payer MEDICARE, MEDICAID ==
[2023-12-28 21:43] LABS: BASOPHILS PERCENT AUTO 0.4 % (0.1-1.3); EOSINOPHILS ABSOLUTE AUTO 0.03 K/uL (0.00-0.40); EOSINOPHILS PERCENT AUTO 0.5 % (0.0-5.4); HEMATOCRIT 39.6 % (34.3-46.0); HEMOGLOBIN 13.5 g/dL (11.2-15.5); IMMATURE GRAN PERCENT AUTO 0.4 % (0.0-0.7); LYMPHOCYTES ABSOLUTE AUTO 1.57 K/uL (0.8-3.3); LYMPHOCYTES PERCENT AUTO 27.8 % (11.4-47.7); MEAN CORPUSCULAR HEMOGLOBIN 31.5 pg (31.6-35.5); MEAN CORPUSCULAR HGB CONC 34.1 g/dL (31.6-35.5); MEAN CORPUSCULAR VOLUME 92.3 fL (81.4-99.0); MONOCYTES ABSOLUTE AUTO 0.67 K/uL (0.20-0.90); MONOCYTES PERCENT AUTO 11.9 % (3.3-12.6); NEUTROPHILS ABSOLUTE AUTO 3.33 K/uL (1.0-7.6); PLATELET COUNT,PLT 156 K/uL (130-375); RED BLOOD CELL COUNT 4.29 M/uL (3.77-5.24); WHITE BLOOD CELL COUNT,WBC 5.6 K/uL (3.2-11.0)
[2023-12-28 21:44] LABS: BASOPHILS ABSOLUTE AUTO 0.02 K/uL (0.00-0.10); IMMATURE GRAN ABSOLUTE AUTO 0.02 K/uL (0.00-0.23)
[2023-12-28 22:02] LABS: ALANINE AMINOTRANSFERASE,ALT 24 U/L (12-78); ALBUMIN 3.5 g/dL (3.4-5.0); ALKALINE PHOSPHATASE 110 U/L (46-116); ASPARTATE AMNIOTRANSFERASE,AST 13 U/L (15-37); BILIRUBIN TOTAL 0.2 mg/dL (0.2-1.0); BLOOD UREA NITROGEN,BUN 21 mg/dL (7-18); CALCIUM 9.7 mg/dL (8.5-10.1); CARBON DIOXIDE,CO2 26 mmol/L (21-32); CHLORIDE,CL 98 mmol/L (100-108); CREATININE 0.9 mg/dL (0.6-1.0); EST CRCL DRUG DOSING (CG) 57.05 mL/min; ESTIMATED GFR 75 mL/min (>60); GLUCOSE RANDOM 190 mg/dL (74-106); POTASSIUM,K 3.5 mmol/L (3.6-5.2); PROTEIN TOTAL,TP 7.1 g/dL (6.4-8.2); SODIUM,NA 137 mmol/L (140-148)
[2023-12-28 22:04] LABS: ANION GAP 16.5 mmol/L (5.0-14.0)
[2023-12-28] MEDS: Albuterol/Ipratropium 3.0-0.5 MG/3 ML Neb Soln NEB ONE (22:11)
[2023-12-28] MEDS: Sodium Chloride 0.9% 1,000 ML IV ONE (22:20)
[2023-12-29] MEDS ORDERED: methylPREDNISolone Sod Succ 250 MG in Dextrose 5% in Water 100 ML IV ONE (00:05)
[2023-12-29 00:19] LABS: CORONAVIRUS COVID-19 NAA NEGATIVE (NEGATIVE); INFLUENZA A NAA NEGATIVE (NEGATIVE); INFLUENZA B NAA NEGATIVE (NEGATIVE); RESPIRATORY SYNCYTIAL VIR NAA NEGATIVE (NEGATIVE)
[2023-12-29] MEDS: methylPREDNISolone Sodium Succinate 125 MG/2 ML SDV IVPUSH ONE (00:36)
[2023-12-29 01:53] LABS: BASE EXCESS ARTERIAL 0.5 mm/L; BICARBONATE,ARTERIAL 24.1 mmol/L (22.0-26.0); CARBOXYHEMOGLOBIN 4.3 % (0.0-1.6); METHEMOGLOBIN 1.2 %; O2 SATURATION ARTERIAL 74.1 % (95.0-98.0); TOTAL HEMOGLOBIN 13.4 g/dL (12.0-16.0)
[2023-12-29 01:56] LABS: PO2 ARTERIAL 41.3 mmHg (75.0-100.0)
[2023-12-29] MEDS ORDERED: Nicotine Polacrilex 2 MG Gum CHEW PRN (03:29)
[2023-12-29] MEDS ORDERED: Nicotine 21 MG/24 Hr Patch TRDERM PRN (03:29)
[2023-12-29] MEDS ORDERED: Benzonatate 100 MG Cap PO PRN (03:29)
[2023-12-29] MEDS ORDERED: Cyclobenzaprine 10 MG Tab PO PRN (03:29)
[2023-12-29] MEDS ORDERED: Albuterol 0.083% 2.5 MG/3 ML Neb Soln NEB PRN (03:29)
[2023-12-29] MEDS ORDERED: Sennosides 8.6 MG Tab PO PRN (03:29)
[2023-12-29] MEDS ORDERED: Prochlorperazine 10 MG Tab PO PRN (03:29)
[2023-12-29] MEDS: Sodium Chloride 0.9% 1,000 ML IV SCH (04:03)
[2023-12-29] MEDS: Potassium Chloride 20 MEQ in Premix Bag 1 BAG IV ONE (04:03)
[2023-12-29] MEDS: cefTRIAXone 1 GM in Sodium Chloride 0.9% 50 ML IV SCH (04:13)
[2023-12-29] MEDS: Levofloxacin/Dextrose 5%-Water 500 MG in Premix Bag 1 BAG IV SCH (04:43)
[2023-12-29] MEDS: methylPREDNISolone Sodium Succinate 40 MG/1 ML SDV IV SCH (05:42)
[2023-12-29] MEDS: Albuterol/Ipratropium 3.0-0.5 MG/3 ML Neb Soln NEB SCH (07:49)
[2023-12-29] MEDS: Acetaminophen/HYDROcodone 325-10 MG Tab PO PRN (08:55)
[2023-12-29] MEDS: Cholecalciferol (Vitamin D3) 25 MCG Tab PO SCH (08:56)
[2023-12-29] MEDS: Vitamin B Complex Tab PO SCH (08:56)
[2023-12-29] MEDS: Furosemide 40 MG Tab PO SCH (08:56)
[2023-12-29] MEDS: Enoxaparin 40 MG/0.4 ML Syringe SUBCUT SCH (08:56)
[2023-12-29] MEDS: Levothyroxine 50 MCG Tab PO SCH (08:57)
[2023-12-29] MEDS: Escitalopram 10 MG Tab PO SCH (08:58)
[2023-12-29] MEDS: buPROPion 150 MG Tab.ER PO SCH (08:59)
[2023-12-29] MEDS: Magnesium Oxide 400 MG Tab PO SCH (08:59)
[2023-12-29] MEDS: ARIPiprazole 10 MG Tab PO SCH (08:59)
[2023-12-29] MEDS ORDERED: Non-Formulary Medication 1 Each (Magnesium Chloride [Mag-64] 64 MG Tab.Er) PO SCH (09:00)
[2023-12-29] MEDS: Pantoprazole 40 MG Vial IV SCH (09:00)
[2023-12-29] MEDS: LORazepam 0.5 MG Tab PO SCH (09:06)
[2023-12-29] MEDS: Pregabalin 100 MG Cap PO SCH (09:06)
[2023-12-29] MEDS: Insulin Lispro 100 Unit/ML 3 ML KwikPen SUBCUT SCH (09:09)
[2023-12-29] MEDS: AMILORIDE 5 MG PO SCH ×2 (10:30→21:19)
[2023-12-29] MEDS: ARMODAFINIL 200 MG PO SCH (10:31)
[2023-12-29] MEDS: METFORMIN 500 MG PO SCH (12:16)
[2023-12-29] MEDS: Sodium Chloride 0.9% 10 ML Syringe FLUSH ONE (14:18)
[2023-12-29] MEDS: Sodium Chloride 0.9% 100 ML IV SCH (14:18)
[2023-12-29] MEDS: Iopamidol 755 Mg/ML 100 ML Bottle IV SCH (14:18)
[2023-12-29] MEDS: Amoxicillin/Clavulanate K 875-125 MG Tab PO SCH (14:53)
[2023-12-29] MEDS ORDERED: Nicotine 14 MG/24 Hr Patch TRDERM SCH (15:45)
[2023-12-29] MEDS: Nicotine 21 MG/24 Hr Patch TRDERM SCH (16:10)
[2023-12-29] MEDS: CYCLOPHOSPHAMIDE 50 MG PO SCH (21:18)
[2023-12-29] MEDS: Acetylcysteine 20% 200 MG/ML 4 ML Nebulizer Soln SDV NEB SCH (21:20)
[2023-12-30 05:09] LABS: HEMOGLOBIN 13.3 g/dL (11.2-15.5); MEAN CORPUSCULAR HEMOGLOBIN 31.1 pg (31.6-35.5); MEAN CORPUSCULAR HGB CONC 33.3 g/dL (31.6-35.5); MEAN CORPUSCULAR VOLUME 93.7 fL (81.4-99.0); RED BLOOD CELL COUNT 4.27 M/uL (3.77-5.24); WHITE BLOOD CELL COUNT,WBC 6.3 K/uL (3.2-11.0)
[2023-12-30 05:28] LABS: ANION GAP 8.9 mmol/L (5.0-14.0); CREATININE 0.7 mg/dL (0.6-1.0); EST CRCL DRUG DOSING (CG) 73.35 mL/min; MAGNESIUM 1.3 mg/dL (1.8-2.4); POTASSIUM,K 3.6 mmol/L (3.6-5.2)
[2023-12-30] MEDS: predniSONE 5 MG Tab PO SCH (08:06)
[2023-12-30] MEDS: Pantoprazole 40 MG Tab.CR PO SCH (08:08)
[2023-12-30] MEDS: Magnesium Sulfate/Water 2 GM in Premix Bag 1 BAG IV SCH (10:05)
[2023-12-31 11:08] VITALS: BP 123/70; PULSE 113
[2023-12-31] MEDS ORDERED: Acetylcysteine 20% 200 MG/ML 4 ML Nebulizer Soln SDV NEB SCH (15:00)
== END 2023-12-31 13:00 | disposition home or self-care (01) | DRG 189 ==
LOC: JP.ED 20:36 → JP.MS 12-29 02:15
PROVIDERS: ADMIT Hospitalist; ATTEND Internal Medicine
DX: J96.21 Acute and chronic respiratory failure with hypoxia (principal); R09.02 Hypoxemia; J44.1 Chronic obstructive pulmonary disease with (acute) exacerbation; C56.9 Malignant neoplasm of unspecified ovary; E11.9 Type 2 diabetes mellitus without complications; J44.0 Chronic obstructive pulmonary disease with (acute) lower respiratory infection; Z66 Do not resuscitate; J20.9 Acute bronchitis, unspecified; J43.9 Emphysema, unspecified; K21.9 Gastro-esophageal reflux disease without esophagitis; E03.9 Hypothyroidism, unspecified; D64.9 Anemia, unspecified; E11.42 Type 2 diabetes mellitus with diabetic polyneuropathy; E87.6 Hypokalemia; M19.90 Unspecified osteoarthritis, unspecified site; I10 Essential (primary) hypertension; F17.210 Nicotine dependence, cigarettes, uncomplicated; Z93.3 Colostomy status; Z88.8 Allergy status to other drugs, medicaments and biological substances; Z79.84 Long term (current) use of oral hypoglycemic drugs; Z99.81 Dependence on supplemental oxygen; Z90.49 Acquired absence of other specified parts of digestive tract; Z90.710 Acquired absence of both cervix and uterus; Z90.721 Acquired absence of ovaries, unilateral; Z98.890 Other specified postprocedural states; Z79.899 Other long term (current) drug therapy; Z79.890 Hormone replacement therapy; Z86.010 Personal history of colon polyps
CPT/HCPCS: 0241U; 36415; 36600; 71046; 71275; 80048; 80053; 82803; 82947; 83735; 85025; 85027; 94640; 94667; 94668; 99232; 99238; 99285; 96361; 96374; 99222; A9270-GY; C9113; J0696; J1650; J1815; J1956; J2920; J2930; J3475; J3480; J3490; J7030; J7512; J7620; Q9967

== ENCOUNTER 2024-02-06 16:39 | Emergency (ER) | payer MEDICARE, MEDICAID ==
[2024-02-06 17:41] LABS: BASOPHILS ABSOLUTE AUTO 0.04 K/uL (0.00-0.10); BASOPHILS PERCENT AUTO 0.6 % (0.1-1.3); EOSINOPHILS ABSOLUTE AUTO 0.11 K/uL (0.00-0.40); EOSINOPHILS PERCENT AUTO 1.7 % (0.0-5.4); HEMOGLOBIN 14.1 g/dL (11.2-15.5); IMMATURE GRAN ABSOLUTE AUTO 0.01 K/uL (0.00-0.23); IMMATURE GRAN PERCENT AUTO 0.2 % (0.0-0.7); LYMPHOCYTES ABSOLUTE AUTO 1.18 K/uL (0.8-3.3); LYMPHOCYTES PERCENT AUTO 18.1 % (11.4-47.7); MEAN CORPUSCULAR HEMOGLOBIN 31.9 pg (31.6-35.5); MEAN CORPUSCULAR HGB CONC 34.4 g/dL (31.6-35.5); MEAN CORPUSCULAR VOLUME 92.8 fL (81.4-99.0); MONOCYTES ABSOLUTE AUTO 0.55 K/uL (0.20-0.90); MONOCYTES PERCENT AUTO 8.4 % (3.3-12.6); NEUTROPHILS ABSOLUTE AUTO 4.63 K/uL (1.0-7.6); PLATELET COUNT,PLT 149 K/uL (130-375); RED BLOOD CELL COUNT 4.42 M/uL (3.77-5.24); WHITE BLOOD CELL COUNT,WBC 6.5 K/uL (3.2-11.0)
[2024-02-06 17:44] LABS: CARBOXYHEMOGLOBIN 9.2 % (0.0-1.6); METHEMOGLOBIN 0.8 %; O2 SATURATION VENOUS 76.9; OXYHEMOGLOBIN 69.2 %; PCO2 VENOUS 37.5 mm/Hg; PH,VENOUS 7.434 (7.350-7.450); TOTAL HEMOGLOBIN 14.4 g/dL (12.0-16.0)
[2024-02-06 17:45] LABS: BASE EXCESS VENOUS 1.1 mm/L; BICARBONATE,VENOUS 24.6 mmol/L; PO2 VENOUS 39.9 mm/Hg
[2024-02-06] MEDS: Albuterol/Ipratropium 3.0-0.5 MG/3 ML Neb Soln NEB ONE (17:47)
[2024-02-06 18:06] LABS: A/G RATIO 0.9 (1.2-2.2); ALANINE AMINOTRANSFERASE,ALT 24 U/L (12-78); ALBUMIN 3.2 g/dL (3.4-5.0); ALKALINE PHOSPHATASE 121 U/L (46-116); ASPARTATE AMNIOTRANSFERASE,AST 17 U/L (15-37); BILIRUBIN TOTAL 0.2 mg/dL (0.2-1.0); BLOOD UREA NITROGEN,BUN 13 mg/dL (7-18); CALCIUM 8.9 mg/dL (8.5-10.1); CARBON DIOXIDE,CO2 26 mmol/L (21-32); CHLORIDE,CL 99 mmol/L (100-108); CREATININE 0.7 mg/dL (0.6-1.0); EST CRCL DRUG DOSING (CG) 70.13 mL/min; ESTIMATED GFR 101 mL/min (>60); GLUCOSE RANDOM 135 mg/dL (74-106); PRO B-TYPE NATRIUR PEPT,BNPPRO 45 pg/mL (5-125); PROTEIN TOTAL,TP 6.9 g/dL (6.4-8.2); SODIUM,NA 134 mmol/L (140-148)
[2024-02-06 18:17] LABS: CORONAVIRUS COVID-19 NAA NEGATIVE (NEGATIVE); INFLUENZA A NAA NEGATIVE (NEGATIVE); INFLUENZA B NAA NEGATIVE (NEGATIVE); RESPIRATORY SYNCYTIAL VIR NAA NEGATIVE (NEGATIVE)
[2024-02-06] MEDS: Iopamidol 755 Mg/ML 100 ML Bottle IV SCH (18:58)
[2024-02-06] MEDS: Sodium Chloride 0.9% 100 ML IV SCH (18:58)
[2024-02-06 19:08] LABS: APPEARANCE,URINE CLEAR (CLEAR); BILIRUBIN,URINE NEGATIVE (NEGATIVE); COLOR,URINE YELLOW (YELLOW); GLUCOSE,URINE NEGATIVE (NEGATIVE); KETONES,URINE NEGATIVE (NEGATIVE); LEUKOCYTE ESTERASE,URINE NEGATIVE (NEGATIVE); NITRITE,URINE NEGATIVE (NEGATIVE); OCCULT BLOOD,URINE NEGATIVE (NEGATIVE); PH,URINE 5.5 (5.0-8.0); PROTEIN,URINE NEGATIVE (NEGATIVE); UROBILINOGEN,URINE 0.2 EU/dL (0.2-1.0)
[2024-02-06 19:13] LABS: AMORPHOUS SEDIMENT,URINE NOT SEEN; BACTERIA,URINE FEW; EPITHELIAL CELLS,URINE RARE; MUCUS,URINE NOT SEEN; RBC,URINE 0-5 (0-5); WBC,URINE 0-5 (0-5)
[2024-02-06] MEDS: predniSONE 20 MG Tab PO ONE (19:49)
[2024-02-06 19:51] VITALS: BP 124/78; PULSE 101
== END 2024-02-06 19:55 | disposition home or self-care (01) ==
LOC: JP.ED 16:39
DX: J44.1 Chronic obstructive pulmonary disease with (acute) exacerbation (principal); I10 Essential (primary) hypertension; K21.9 Gastro-esophageal reflux disease without esophagitis; E11.9 Type 2 diabetes mellitus without complications; E03.9 Hypothyroidism, unspecified; Z88.8 Allergy status to other drugs, medicaments and biological substances; Z79.899 Other long term (current) drug therapy; Z79.84 Long term (current) use of oral hypoglycemic drugs
CPT/HCPCS: 0241U; 36415; 71275; 80053; 81001; 82803; 83605; 83880; 84145; 84484; 85025; 85379; 93005; 94640; 99285; J3490; J7512; Q9967; 93010; J7620

== ENCOUNTER 2024-03-10 22:15 | Emergency (ER) | payer MEDICARE, MEDICAID ==
[2024-03-11] MEDS: Magnesium Sulfate/Water 2 GM in Premix Bag 1 BAG IV ONE ×2 (00:45→02:24)
[2024-03-11] MEDS: Benzonatate 100 MG Cap PO ONE (02:44)
[2024-03-11 03:52] VITALS: BP 100/62; PULSE 103
== END 2024-03-11 05:48 | disposition home or self-care (01) ==
LOC: JP.ED 22:15
DX: J44.1 Chronic obstructive pulmonary disease with (acute) exacerbation (principal); E83.42 Hypomagnesemia; I10 Essential (primary) hypertension; J44.9 Chronic obstructive pulmonary disease, unspecified; K21.9 Gastro-esophageal reflux disease without esophagitis; E11.9 Type 2 diabetes mellitus without complications; E03.9 Hypothyroidism, unspecified; F17.210 Nicotine dependence, cigarettes, uncomplicated; Z88.6 Allergy status to analgesic agent; Z88.8 Allergy status to other drugs, medicaments and biological substances; Z79.899 Other long term (current) drug therapy; Z79.84 Long term (current) use of oral hypoglycemic drugs; Z90.49 Acquired absence of other specified parts of digestive tract; Z90.710 Acquired absence of both cervix and uterus
CPT/HCPCS: 36415; 83735; 96365; 96366; 99283; A9270; J3475

== ENCOUNTER 2024-04-12 06:46 | Emergency (ER) | payer MEDICARE, MEDICAID ==
[2024-04-12 07:28] LABS: BASOPHILS ABSOLUTE AUTO 0.03 K/uL (0.00-0.10); BASOPHILS PERCENT AUTO 0.6 % (0.1-1.3); HEMATOCRIT 39.9 % (34.3-46.0); HEMOGLOBIN 13.5 g/dL (11.2-15.5); IMMATURE GRAN PERCENT AUTO 0.4 % (0.0-0.7); LYMPHOCYTES ABSOLUTE AUTO 1.21 K/uL (0.8-3.3); LYMPHOCYTES PERCENT AUTO 23.9 % (11.4-47.7); MEAN CORPUSCULAR HEMOGLOBIN 30.5 pg (31.6-35.5); MEAN CORPUSCULAR HGB CONC 33.8 g/dL (31.6-35.5); MEAN CORPUSCULAR VOLUME 90.3 fL (81.4-99.0); MONOCYTES PERCENT AUTO 11.8 % (3.3-12.6); NEUTROPHILS ABSOLUTE AUTO 3.11 K/uL (1.0-7.6); NEUTROPHILS PERCENT AUTO 61.3 % (40.0-78.1); PLATELET COUNT,PLT 141 K/uL (130-375); RED BLOOD CELL COUNT 4.42 M/uL (3.77-5.24); WHITE BLOOD CELL COUNT,WBC 5.1 K/uL (3.2-11.0)
[2024-04-12 07:34] LABS: IMMATURE GRAN ABSOLUTE AUTO 0.02 K/uL (0.00-0.23)
[2024-04-12 07:39] LABS: ANION GAP 15.9 mmol/L (5.0-14.0); C-REACTIVE PROTEIN 3.11 mg/dL (<0.50); CALCIUM 9.5 mg/dL (8.5-10.1); CREATININE 0.8 mg/dL (0.6-1.0); EST CRCL DRUG DOSING (CG) 64.18 mL/min; POTASSIUM,K 3.9 mmol/L (3.6-5.2)
[2024-04-12] MEDS: LORazepam 1 MG Tab PO ONE ×2 (07:44→08:21)
[2024-04-12] MEDS: Magnesium Oxide 400 MG Tab PO ONE (07:49)
[2024-04-12 07:54] LABS: APPEARANCE,URINE CLEAR (CLEAR); BILIRUBIN,URINE NEGATIVE (NEGATIVE); COLOR,URINE YELLOW (YELLOW); GLUCOSE,URINE NEGATIVE (NEGATIVE); KETONES,URINE NEGATIVE (NEGATIVE); LEUKOCYTE ESTERASE,URINE NEGATIVE (NEGATIVE); NITRITE,URINE NEGATIVE (NEGATIVE); OCCULT BLOOD,URINE NEGATIVE (NEGATIVE); PH,URINE 5.5 (5.0-8.0); PROTEIN,URINE NEGATIVE (NEGATIVE); UROBILINOGEN,URINE 0.2 EU/dL (0.2-1.0)
[2024-04-12 07:58] LABS: BACTERIA,URINE NOT SEEN; EPITHELIAL CELLS,URINE NOT SEEN; RBC,URINE NOT SEEN (0-5); WBC,URINE NOT SEEN (0-5)
[2024-04-12 08:29] VITALS: BP 106/61; PULSE 93
== END 2024-04-12 08:25 | disposition home or self-care (01) ==
LOC: JP.ED 06:46
DX: E83.42 Hypomagnesemia (principal); I10 Essential (primary) hypertension; J44.9 Chronic obstructive pulmonary disease, unspecified; E11.9 Type 2 diabetes mellitus without complications; E03.9 Hypothyroidism, unspecified; F17.210 Nicotine dependence, cigarettes, uncomplicated; Z90.49 Acquired absence of other specified parts of digestive tract; Z90.710 Acquired absence of both cervix and uterus; Z88.6 Allergy status to analgesic agent; Z88.8 Allergy status to other drugs, medicaments and biological substances; Z79.899 Other long term (current) drug therapy
CPT/HCPCS: 36415; 71045; 80048; 81001; 83735; 84484; 85025; 86140; 93005; 99285; A9270; U0002

== ENCOUNTER 2024-06-03 16:04 | Emergency (ER) | payer MEDICARE, MEDICAID ==
[2024-06-03 19:42] VITALS: BP 118/66; PULSE 93
== END 2024-06-03 19:55 | disposition home or self-care (01) ==
LOC: JP.ED 16:04
DX: E83.42 Hypomagnesemia (principal); I10 Essential (primary) hypertension; E11.9 Type 2 diabetes mellitus without complications; E03.9 Hypothyroidism, unspecified; Z88.8 Allergy status to other drugs, medicaments and biological substances; Z79.890 Hormone replacement therapy; Z79.899 Other long term (current) drug therapy; Z90.49 Acquired absence of other specified parts of digestive tract; Z90.710 Acquired absence of both cervix and uterus
CPT/HCPCS: 36415; 83735; 99283

== ENCOUNTER 2024-12-28 18:33 | Inpatient (IN) | payer MEDICARE, MEDICAID ==
[2024-12-28 18:59] LABS: BASOPHILS ABSOLUTE AUTO 0.03 K/uL (0.00-0.10); BASOPHILS PERCENT AUTO 0.3 % (0.1-1.3); EOSINOPHILS ABSOLUTE AUTO 0.21 K/uL (0.00-0.40); EOSINOPHILS PERCENT AUTO 2.3 % (0.0-5.4); HEMATOCRIT 42.8 % (34.3-46.0); HEMOGLOBIN 13.5 g/dL (11.2-15.5); IMMATURE GRAN ABSOLUTE AUTO 0.06 K/uL (0.00-0.23); IMMATURE GRAN PERCENT AUTO 0.6 % (0.0-0.7); LYMPHOCYTES ABSOLUTE AUTO 0.44 K/uL (0.8-3.3); LYMPHOCYTES PERCENT AUTO 4.7 % (11.4-47.7); MEAN CORPUSCULAR HEMOGLOBIN 25.1 pg (31.6-35.5); MEAN CORPUSCULAR HGB CONC 31.5 g/dL (31.6-35.5); MEAN CORPUSCULAR VOLUME 79.7 fL (81.4-99.0); MONOCYTES ABSOLUTE AUTO 0.48 K/uL (0.20-0.90); MONOCYTES PERCENT AUTO 5.1 % (3.3-12.6); NEUTROPHILS ABSOLUTE AUTO 8.11 K/uL (1.0-7.6); PLATELET COUNT,PLT 187 K/uL (130-375); RED BLOOD CELL COUNT 5.37 M/uL (3.77-5.24); WHITE BLOOD CELL COUNT,WBC 9.3 K/uL (3.2-11.0)
[2024-12-28] MEDS: Sodium Chloride 0.9% 1,000 ML IV SCH ×2 (19:02→20:31)
[2024-12-28] MEDS: diphenhydrAMINE 50 MG/ML SDV IVPUSH ONE (19:02)
[2024-12-28] MEDS: Promethazine 6.25 MG in Sodium Chloride 0.9% 50 ML IV ONE (19:02)
[2024-12-28 19:20] LABS: A/G RATIO 1.1 (1.2-2.2); ALANINE AMINOTRANSFERASE,ALT 30 U/L (12-78); ALBUMIN 3.9 g/dL (3.4-5.0); ALKALINE PHOSPHATASE 144 U/L (46-116); ASPARTATE AMNIOTRANSFERASE,AST 28 U/L (15-37); BILIRUBIN TOTAL 0.4 mg/dL (0.2-1.0); BLOOD UREA NITROGEN,BUN 21 mg/dL (7-18); CALCIUM 9.6 mg/dL (8.5-10.1); CARBON DIOXIDE,CO2 23 mmol/L (21-32); CHLORIDE,CL 97 mmol/L (100-108); CREATININE 0.9 mg/dL (0.6-1.0); EST CRCL DRUG DOSING (CG) 56.36 mL/min; ESTIMATED GFR 74 mL/min (>60); GLUCOSE RANDOM 162 mg/dL (74-106); POTASSIUM,K 4.6 mmol/L (3.6-5.2); PROTEIN TOTAL,TP 7.6 g/dL (6.4-8.2); SODIUM,NA 136 mmol/L (140-148)
[2024-12-28 19:22] LABS: ANION GAP 20.6 mmol/L (5.0-14.0)
[2024-12-28] MEDS: Morphine 4 MG/ML Syringe IVPUSH ONE (20:25)
[2024-12-28 20:43] LABS: APPEARANCE,URINE SLIGHTLY CLOUDY (CLEAR); BILIRUBIN,URINE NEGATIVE (NEGATIVE); COLOR,URINE YELLOW (YELLOW); GLUCOSE,URINE NEGATIVE (NEGATIVE); KETONES,URINE NEGATIVE (NEGATIVE); OCCULT BLOOD,URINE NEGATIVE (NEGATIVE); PH,URINE 5.5 (5.0-8.0); PROTEIN,URINE NEGATIVE (NEGATIVE)
[2024-12-28 20:44] LABS: LEUKOCYTE ESTERASE,URINE NEGATIVE (NEGATIVE); NITRITE,URINE NEGATIVE (NEGATIVE); UROBILINOGEN,URINE 0.2 EU/dL (0.2-1.0)
[2024-12-28] MEDS ORDERED: Azithromycin 500 MG Vial IV ONE (20:45)
[2024-12-28 20:50] LABS: AMORPHOUS SEDIMENT,URINE NOT SEEN; BACTERIA,URINE NOT SEEN; EPITHELIAL CELLS,URINE RARE; MUCUS,URINE RARE; RBC,URINE 0-5 (0-5); WBC,URINE 0-5 (0-5)
[2024-12-28] MEDS: cefTRIAXone 1 GM in Sodium Chloride 0.9% 50 ML IV ONE (21:11)
[2024-12-28] MEDS: cefTRIAXone 1 GM Vial IM ONE (21:17)
[2024-12-28] MEDS: Azithromycin 500 MG in Sodium Chloride 0.9% 250 ML IV ONE (21:51)
[2024-12-28] MEDS: Magnesium Sulf/Wat 2 GM/50 mL 2 GM in Premix Bag 1 BAG IV ONE (21:58)
[2024-12-28] MEDS ORDERED: Naloxone 0.4 MG/ML SDV IVPUSH PRN (22:50)
[2024-12-28] MEDS ORDERED: Glucose Gel 15 GM in 37.5 GM Tube PO PRN (22:50)
[2024-12-28] MEDS ORDERED: Polyethylene Glycol 3350 Powder 17 GM Packet PO PRN (22:50)
[2024-12-28] MEDS ORDERED: Cyclobenzaprine 10 MG Tab PO PRN (22:50)
[2024-12-28] MEDS ORDERED: Albuterol/Ipratropium 3.0-0.5 MG/3 ML Neb Soln NEB PRN (22:50)
[2024-12-28] MEDS ORDERED: Acetaminophen 325 MG Tab PO PRN (22:50)
[2024-12-28] MEDS ORDERED: Albuterol 0.083% 2.5 MG/3 ML Neb Soln NEB PRN (22:50)
[2024-12-28] MEDS ORDERED: PEMBROLIZUMAB 100 MG/4 ML IV SCH (22:50)
[2024-12-28] MEDS ORDERED: METHYLPHENIDATE 36 MG PO PRN (22:50)
[2024-12-28] MEDS ORDERED: 50% Dextrose in Water 50 ML Syringe IV PRN (22:50)
[2024-12-28] MEDS: Ondansetron 4 MG/2 ML SDV IV PRN (23:41)
[2024-12-29] MEDS ORDERED: Sodium Chloride 0.9% 10 ML Syringe FLUSH PRN (00:28)
[2024-12-29] MEDS: Sodium Chloride 0.9% 1,000 ML IV SCH ×2 (00:42→21:36)
[2024-12-29] MEDS: Enoxaparin 40 MG/0.4 ML Syringe SUBCUT SCH (00:42)
[2024-12-29] MEDS: Levofloxacin/Dextrose 5%-Water 750 MG in Premix Bag 1 BAG IV SCH (00:43)
[2024-12-29] MEDS: Hydrocortisone Sodium Succinate 100 MG/2 ML SDV IVPUSH ONE (00:43)
[2024-12-29] MEDS: Sodium Chloride 0.9% 100 ML IV SCH (01:02)
[2024-12-29] MEDS: Sodium Chloride 0.9% 10 ML Syringe FLUSH PRN (01:02)
[2024-12-29] MEDS: Iopamidol 755 Mg/ML 100 ML Bottle IV SCH (01:02)
[2024-12-29] MEDS: LORazepam 2 MG/ML SDV IVPUSH PRN (01:04)
[2024-12-29] MEDS: HYDROmorphone 0.5 MG/0.5 ML Syringe IVPUSH PRN (01:05)
[2024-12-29 05:55] LABS: HEMATOCRIT 34.5 % (34.3-46.0); HEMOGLOBIN 10.7 g/dL (11.2-15.5); MEAN CORPUSCULAR HEMOGLOBIN 25.2 pg (31.6-35.5); MEAN CORPUSCULAR VOLUME 81.2 fL (81.4-99.0); RED BLOOD CELL COUNT 4.25 M/uL (3.77-5.24); WHITE BLOOD CELL COUNT,WBC 5.9 K/uL (3.2-11.0)
[2024-12-29 06:11] LABS: CALCIUM 8.4 mg/dL (8.5-10.1); CREATININE 0.7 mg/dL (0.6-1.0); EST CRCL DRUG DOSING (CG) 72.47 mL/min; MAGNESIUM 1.4 mg/dL (1.8-2.4); POTASSIUM,K 3.7 mmol/L (3.6-5.2)
[2024-12-29 06:15] LABS: ANION GAP 15.7 mmol/L (5.0-14.0)
[2024-12-29 06:34] LABS: CORONAVIRUS COVID-19 NAA NEGATIVE (NEGATIVE); INFLUENZA A NAA NEGATIVE (NEGATIVE); INFLUENZA B NAA NEGATIVE (NEGATIVE); RESPIRATORY SYNCYTIAL VIR NAA NEGATIVE (NEGATIVE)
[2024-12-29] MEDS: Insulin Lispro 100 Unit/ML 3 ML KwikPen SUBCUT SCH (07:37)
[2024-12-29] MEDS: Magnesium Sulf/Wat 2 GM/50 mL 2 GM in Premix Bag 1 BAG IV SCH ×2 (08:51→10:55)
[2024-12-29] MEDS: Levothyroxine 25 MCG Tab PO SCH (08:51)
[2024-12-29] MEDS: Famotidine 20 MG Tab PO SCH (08:51)
[2024-12-29] MEDS: Escitalopram 10 MG Tab PO SCH (08:52)
[2024-12-29] MEDS: Cetirizine 10 MG Tab PO SCH (08:52)
[2024-12-29] MEDS: Fluconazole 100 MG Tab PO SCH (08:52)
[2024-12-29] MEDS: ARIPiprazole 10 MG Tab PO SCH (08:52)
[2024-12-29] MEDS: buPROPion 150 MG Tab.ER PO SCH (08:52)
[2024-12-29] MEDS: Pantoprazole 40 MG Tab.CR PO SCH (08:52)
[2024-12-29] MEDS ORDERED: MAGNESIUM SULF IV SCH (09:00)
[2024-12-29] MEDS ORDERED: [UNRECOGNIZED DRUG - OTHER] IV SCH (09:00)
[2024-12-29] MEDS ORDERED: MAGNESIUM SULFATE IV SCH (09:00)
[2024-12-29] MEDS ORDERED: WAT IV SCH (09:00)
[2024-12-29] MEDS ORDERED: Non-Formulary Medication 1 Each (Budesonide/Formoterol Fumarate [Symbicort 160-4.5 Mcg Inh INH SCH (09:00)
[2024-12-29] MEDS ORDERED: SODIUM CHLORIDE 0.9% IV SCH (09:00)
[2024-12-29] MEDS ORDERED: ARMODAFINIL 200 MG PO SCH (09:00)
[2024-12-29] MEDS ORDERED: Non-Formulary Medication 1 Each (Lansoprazole [Prevacid] 30 MG Capsule.Dr) PO SCH (09:00)
[2024-12-29] MEDS: Pregabalin 100 MG Cap PO SCH (09:17)
[2024-12-29] MEDS: Acetaminophen/HYDROcodone 325-10 MG Tab PO PRN (09:17)
[2024-12-29] MEDS: predniSONE 5 MG Tab PO SCH (09:19)
[2024-12-29] MEDS: Tiotropium Bromide 4 GM Inhalation Spray (2.5mcg/1 dose; 10 doses) INH SCH (09:19)
[2024-12-29] MEDS: Formoterol/Mometasone 200-5 MCG 8.8 GM Inhaler INH SCH (09:19)
[2024-12-29] MEDS ORDERED: diphenhydrAMINE 25 MG Cap PO PRN (09:27)
[2024-12-29] MEDS: diphenhydrAMINE 50 MG/ML SDV IVPUSH PRN (09:39)
[2024-12-29] MEDS ORDERED: Cyclobenzaprine 10 MG Tab PO PRN (09:45)
[2024-12-29] MEDS ORDERED: ARMODAFINIL 250 MG PO SCH (10:04)
[2024-12-29] MEDS ORDERED: METHYLPHENIDATE 36 MG PO SCH (10:05)
[2024-12-29] MEDS: predniSONE 20 MG Tab PO ONE (11:19)
[2024-12-29] MEDS: METHYLPHENIDATE 36 MG PO SCH (13:36)
[2024-12-29] MEDS: ROFLUMILAST 250 MCG PO SCH (13:36)
[2024-12-29] MEDS: ARMODAFINIL 250 MG PO SCH (13:36)
[2024-12-29] MEDS: AMILORIDE 5 MG PO SCH (14:13)
[2024-12-29] MEDS: Magnesium Oxide 400 MG Tab PO SCH (14:48)
[2024-12-29] MEDS ORDERED: cefTRIAXone 1 GM in Sodium Chloride 0.9% 50 ML IV SCH (21:00)
[2024-12-29] MEDS: Levofloxacin 250 MG Tab PO SCH (21:28)
[2024-12-30] MEDS: AMILORIDE 5 MG PO SCH (01:36)
[2024-12-30 06:00] LABS: HEMATOCRIT 29.5 % (34.3-46.0); MEAN CORPUSCULAR HEMOGLOBIN 24.7 pg (31.6-35.5); MEAN CORPUSCULAR HGB CONC 30.5 g/dL (31.6-35.5); RED BLOOD CELL COUNT 3.64 M/uL (3.77-5.24); WHITE BLOOD CELL COUNT,WBC 4.6 K/uL (3.2-11.0)
[2024-12-30 06:17] LABS: ANION GAP 8.2 mmol/L (5.0-14.0); CALCIUM 8.5 mg/dL (8.5-10.1); CREATININE 0.7 mg/dL (0.6-1.0); EST CRCL DRUG DOSING (CG) 72.47 mL/min; MAGNESIUM 1.3 mg/dL (1.8-2.4); POTASSIUM,K 3.7 mmol/L (3.6-5.2)
[2024-12-30] MEDS: Levothyroxine 50 MCG Tab PO SCH (07:31)
[2024-12-30] MEDS ORDERED: Ondansetron 4 MG Tab.DIS PO PRN (07:42)
[2024-12-30] MEDS ORDERED: ARMODAFINIL 250 MG PO SCH (09:00)
[2024-12-30] MEDS: predniSONE 20 MG Tab PO SCH (09:04)
[2024-12-30] MEDS: METHYLPHENIDATE 36 MG PO SCH (09:08)
[2024-12-30] MEDS: Magnesium Sulf/Wat 2 GM/50 mL 2 GM in Premix Bag 1 BAG IV SCH (09:18)
[2024-12-30 11:27] VITALS: BP 114/67; PULSE 92
== END 2024-12-30 13:30 | disposition home or self-care (01) | DRG 189 ==
LOC: JP.ED 18:33 → JP.ICU 22:22
PROVIDERS: ADMIT Hospitalist; ATTEND Internal Medicine
DX: J18.9 Pneumonia, unspecified organism (principal); J96.21 Acute and chronic respiratory failure with hypoxia; C56.9 Malignant neoplasm of unspecified ovary; J44.9 Chronic obstructive pulmonary disease, unspecified; D84.9 Immunodeficiency, unspecified; J44.0 Chronic obstructive pulmonary disease with (acute) lower respiratory infection; J44.1 Chronic obstructive pulmonary disease with (acute) exacerbation; Z66 Do not resuscitate; H54.7 Unspecified visual loss; Z88.1 Allergy status to other antibiotic agents; I10 Essential (primary) hypertension; K21.9 Gastro-esophageal reflux disease without esophagitis; F41.9 Anxiety disorder, unspecified; F32.A Depression, unspecified; E03.9 Hypothyroidism, unspecified; M19.90 Unspecified osteoarthritis, unspecified site; E11.42 Type 2 diabetes mellitus with diabetic polyneuropathy; E86.0 Dehydration; J20.9 Acute bronchitis, unspecified; Z88.8 Allergy status to other drugs, medicaments and biological substances; Z79.899 Other long term (current) drug therapy; Z79.51 Long term (current) use of inhaled steroids; Z79.2 Long term (current) use of antibiotics; Z79.84 Long term (current) use of oral hypoglycemic drugs; Z79.52 Long term (current) use of systemic steroids; Z86.0100 Personal history of colon polyps, unspecified; Z98.890 Other specified postprocedural states; Z90.710 Acquired absence of both cervix and uterus; Z90.722 Acquired absence of ovaries, bilateral; Z90.79 Acquired absence of other genital organ(s); Z90.49 Acquired absence of other specified parts of digestive tract; Z98.51 Tubal ligation status
CPT/HCPCS: 0241U; 36415; 71045; 71275; 80048; 80053; 81001; 82947; 83605; 83690; 83735; 84484; 85025; 85027; 87040; 93005; 93010; 94640; 99285; 96361; 96365; 96367; 96375; A9270-GY; J0456; J0696; J1200; J1650; J1720; J1815; J1956; J2060; J2270; J2405; J2550; J3475; J7030; J7050; J7512; Q9967

== ENCOUNTER 2025-07-24 17:00 | Emergency (ER) | payer MEDICARE, MEDICAID ==
[2025-07-24 17:49] LABS: BASOPHILS ABSOLUTE AUTO 0.04 K/uL (0.00-0.10); BASOPHILS PERCENT AUTO 0.5 % (0.1-1.3); EOSINOPHILS ABSOLUTE AUTO 0.03 K/uL (0.00-0.40); EOSINOPHILS PERCENT AUTO 0.3 % (0.0-5.4); IMMATURE GRAN ABSOLUTE AUTO 0.15 K/uL (0.00-0.23); IMMATURE GRAN PERCENT AUTO 1.7 % (0.0-0.7); LYMPHOCYTES ABSOLUTE AUTO 1.91 K/uL (0.8-3.3); LYMPHOCYTES PERCENT AUTO 21.7 % (11.4-47.7); MONOCYTES ABSOLUTE AUTO 0.75 K/uL (0.20-0.90); MONOCYTES PERCENT AUTO 8.5 % (3.3-12.6); NEUTROPHILS ABSOLUTE AUTO 5.92 K/uL (1.0-7.6); NEUTROPHILS PERCENT AUTO 67.3 % (40.0-78.1); PLATELET COUNT,PLT 109 K/uL (130-375); RED BLOOD CELL COUNT 4.47 M/uL (3.77-5.24); WHITE BLOOD CELL COUNT,WBC 8.8 K/uL (3.2-11.0)
[2025-07-24 18:11] LABS: A/G RATIO 1.1 (1.2-2.2); ALANINE AMINOTRANSFERASE,ALT 34 U/L (12-78); ASPARTATE AMNIOTRANSFERASE,AST 11 U/L (15-37); BILIRUBIN TOTAL 0.3 mg/dL (0.2-1.0); BLOOD UREA NITROGEN,BUN 21 mg/dL (7-18); CARBON DIOXIDE,CO2 26 mmol/L (21-32); CHLORIDE,CL 96 mmol/L (100-108); CREATININE 0.9 mg/dL (0.6-1.0); EST CRCL DRUG DOSING (CG) 56.36 mL/min; ESTIMATED GFR 74 mL/min (>60); GLUCOSE RANDOM 266 mg/dL (74-106); POTASSIUM,K 4.2 mmol/L (3.6-5.2); PROTEIN TOTAL,TP 6.3 g/dL (6.4-8.2); SODIUM,NA 132 mmol/L (140-148)
[2025-07-24] MEDS ORDERED: 50% Dextrose in Water 50 ML Syringe IVPUSH PRN (18:35)
[2025-07-24 19:01] LABS: APPEARANCE,URINE CLEAR (CLEAR); GLUCOSE,URINE 500 mg/dL (NEGATIVE); OCCULT BLOOD,URINE NEGATIVE (NEGATIVE)
[2025-07-24] MEDS: Insulin Regular, Human 100 Units/ML 10 ML Vial SUBCUT ONE (19:03)
[2025-07-24 19:09] LABS: SQUAMOUS EPITHELIAL CELLS,UR NOT SEEN /HPF; UROTHELIAL CELLS,URINE NOT SEEN /HPF
[2025-07-24 19:29] VITALS: BP 107/66; PULSE 115
== END 2025-07-24 20:53 | disposition home or self-care (01) ==
LOC: JP.ED 17:00
DX: E11.65 Type 2 diabetes mellitus with hyperglycemia (principal); I10 Essential (primary) hypertension; J44.9 Chronic obstructive pulmonary disease, unspecified; K21.9 Gastro-esophageal reflux disease without esophagitis; E03.9 Hypothyroidism, unspecified; Z90.49 Acquired absence of other specified parts of digestive tract; Z90.710 Acquired absence of both cervix and uterus; Z88.8 Allergy status to other drugs, medicaments and biological substances; Z79.890 Hormone replacement therapy; Z79.84 Long term (current) use of oral hypoglycemic drugs; Z79.899 Other long term (current) drug therapy
CPT/HCPCS: 36415; 80053; 81001; 82800; 82947; 85025; 96360; 99284; J7030; A9270-GY

== ENCOUNTER 2025-08-09 01:38 | Emergency (ER) | payer MEDICARE, MEDICAID ==
[2025-08-09 01:59] LABS: BASOPHILS ABSOLUTE AUTO 0.04 K/uL (0.00-0.10); BASOPHILS PERCENT AUTO 0.5 % (0.1-1.3); EOSINOPHILS ABSOLUTE AUTO 0.03 K/uL (0.00-0.40); EOSINOPHILS PERCENT AUTO 0.3 % (0.0-5.4); IMMATURE GRAN ABSOLUTE AUTO 0.10 K/uL (0.00-0.23); IMMATURE GRAN PERCENT AUTO 1.2 % (0.0-0.7); LYMPHOCYTES ABSOLUTE AUTO 1.75 K/uL (0.8-3.3); LYMPHOCYTES PERCENT AUTO 20.2 % (11.4-47.7); MONOCYTES ABSOLUTE AUTO 0.75 K/uL (0.20-0.90); MONOCYTES PERCENT AUTO 8.6 % (3.3-12.6); NEUTROPHILS ABSOLUTE AUTO 6.01 K/uL (1.0-7.6); NEUTROPHILS PERCENT AUTO 69.2 % (40.0-78.1); PLATELET COUNT,PLT 173 K/uL (130-375); RED BLOOD CELL COUNT 4.52 M/uL (3.77-5.24); WHITE BLOOD CELL COUNT,WBC 8.7 K/uL (3.2-11.0)
[2025-08-09] MEDS ORDERED: Naloxone 0.4 MG/ML SDV IVPUSH PRN (02:02)
[2025-08-09] MEDS: Prochlorperazine 10 MG/2 ML SDV IVPUSH ONE (02:08)
[2025-08-09 02:18] LABS: A/G RATIO 1.2 (1.2-2.2); ALANINE AMINOTRANSFERASE,ALT 30 U/L (12-78); ASPARTATE AMNIOTRANSFERASE,AST 13 U/L (15-37); BILIRUBIN TOTAL 0.5 mg/dL (0.2-1.0); BLOOD UREA NITROGEN,BUN 24 mg/dL (7-18); CARBON DIOXIDE,CO2 25 mmol/L (21-32); CHLORIDE,CL 99 mmol/L (100-108); CREATININE 0.8 mg/dL (0.6-1.0); EST CRCL DRUG DOSING (CG) 62.63 mL/min; ESTIMATED GFR 85 mL/min (>60); GLUCOSE RANDOM 244 mg/dL (74-106); POTASSIUM,K 4.7 mmol/L (3.6-5.2); PROTEIN TOTAL,TP 6.3 g/dL (6.4-8.2); SODIUM,NA 135 mmol/L (140-148)
[2025-08-09 02:23] LABS: LACTIC ACID 3.2 mmol/L (0.4-2.0)
[2025-08-09] MEDS: Sodium Chloride 0.9% 10 ML Syringe FLUSH ONE (02:54)
[2025-08-09] MEDS: Iopamidol 612 MG/ML 100 ML Bottle IV SCH (02:54)
[2025-08-09] MEDS: LORazepam 2 MG/ML SDV IVPUSH ONE ×2 (05:17→07:28)
[2025-08-09] MEDS: Ondansetron 4 MG/2 ML SDV IVPUSH ONE (05:58)
[2025-08-09] MEDS ORDERED: METHYLPHENIDATE 36 MG PO PRN (07:24)
[2025-08-09] MEDS ORDERED: Non-Formulary Medication 1 Each (Levothyroxine [Levothyroxine] 150 MCG Tablet) PO SCH (07:30)
[2025-08-09] MEDS ORDERED: PEMBROLIZUMAB 100 MG/4 ML IV SCH (07:30)
[2025-08-09] MEDS: Metoprolol Tartrate 5 MG/5 ML SDV IVPUSH ONE (07:34)
[2025-08-09] MEDS ORDERED: Non-Formulary Medication 1 Each (Roflumilast [Daliresp] 250 MCG Tablet) PO SCH (09:00)
[2025-08-09] MEDS ORDERED: Non-Formulary Medication 1 Each (Magnesium Chloride [Mag-64] 64 MG Tab.Er) PO SCH (09:00)
[2025-08-09] MEDS ORDERED: buPROPion 150 MG Tab.ER PO SCH (09:00)
[2025-08-09] MEDS ORDERED: Cholecalciferol (Vitamin D3) 25 MCG Tab PO SCH (09:00)
[2025-08-09] MEDS ORDERED: Non-Formulary Medication 1 Each (Escitalopram [Lexapro] 20 MG Tablet) PO SCH (09:00)
[2025-08-09] MEDS ORDERED: Non-Formulary Medication 1 Each (Cholecalciferol (Vitamin D3) [Vitamin D3] 2,000 UNIT Caps PO SCH (09:00)
[2025-08-09] MEDS ORDERED: Non-Formulary Medication 1 Each (Lansoprazole [Prevacid] 30 MG Capsule.Dr) PO SCH (09:00)
[2025-08-09] MEDS ORDERED: ARMODAFINIL 250 MG PO SCH (09:00)
[2025-08-09] MEDS ORDERED: Tiotropium Bromide 4 GM Inhalation Spray (2.5mcg/1 dose; 10 doses) INH SCH (09:00)
[2025-08-09] MEDS ORDERED: Non-Formulary Medication 1 Each (Metformin [Glucophage Xr] 500 MG Tab.Er) PO SCH (09:00)
[2025-08-09] MEDS ORDERED: Non-Formulary Medication 1 Each (Bupropion Hcl [Bupropion Xl] 300 MG Tab.Er.24h) PO SCH (09:00)
[2025-08-09] MEDS ORDERED: Non-Formulary Medication 1 Each (Aripiprazole [Abilify] 5 MG Tablet) PO SCH (09:00)
[2025-08-09] MEDS ORDERED: ARMODAFINIL 200 MG PO SCH (09:00)
[2025-08-09] MEDS ORDERED: Non-Formulary Medication 1 Each (Budesonide/Formoterol Fumarate [Symbicort 160-4.5 Mcg Inh INH SCH (09:00)
[2025-08-09 09:15] VITALS: BP 148/83; PULSE 129
== END 2025-08-09 10:00 ==
LOC: JP.ED 01:38
DX: K56.609 Unspecified intestinal obstruction, unspecified as to partial versus complete obstruction (principal); I10 Essential (primary) hypertension; J44.9 Chronic obstructive pulmonary disease, unspecified; E11.9 Type 2 diabetes mellitus without complications; E03.9 Hypothyroidism, unspecified; K21.9 Gastro-esophageal reflux disease without esophagitis; Z90.710 Acquired absence of both cervix and uterus; Z79.899 Other long term (current) drug therapy; Z79.84 Long term (current) use of oral hypoglycemic drugs; Z79.4 Long term (current) use of insulin; Z88.1 Allergy status to other antibiotic agents; Z88.8 Allergy status to other drugs, medicaments and biological substances; Z79.890 Hormone replacement therapy
CPT/HCPCS: 36415; 43752; 71045; 74177; 80053; 83605; 83690; 85025; 85379; 86140; 96361; 96374; 96375; 96376; 99284; 99285; J0616; J0780; J2060; J2405; J7030; Q9967; J1171